=== PATIENT | male | born 1990 | race Caucasian/White ===

== ENCOUNTER 2016-10-21 17:58 | Emergency (ER) | payer OTHER ==
[2016-10-21 17:58] LABS: ACETAMINOPHEN <10 ug/mL; ALBUMIN SERUM 4.1 g/dL (3.5-5.0); ALCOHOL BLOOD <5 mg/dL (0); ALKALINE PHOSPHATASE 72 U/L (32-92); ALT (SGPT) 21 U/L (10-40); AST (SGOT) 35 U/L (10-42); BILIRUBIN, DIRECT 0.3 mg/dL (0.0-0.2); BILIRUBIN,INDIRECT 0.6 mg/dL (0.0-0.9); BILIRUBIN,TOTAL 0.9 mg/dL (0.2-2.0); BLOOD UREA NITROGEN 6 mg/dL (9-23); CARBON DIOXIDE 26 mmol/L (22-31); CHLORIDE 104 mmol/L (100-111); CREATININE SERUM 0.8 mg/dL (0.6-1.4); GLOM FILT RATE Estimated 124.2 mL/min (>60); GLUCOSE FASTING 146 mg/dL (70-110); POTASSIUM 4.8 mmol/L (3.5-5.1); SALICYLATE <4.0 mg/dL; SODIUM 137 mmol/L (135-145)
[~2016-10-21 17:58] MED LIST: BENADRYL ALLERG25 MG PO; ELIMITE60 G1 TP; FAMOTIDINE PO; NALTREXONE IM; NAPROSYN500 MG PO; NO MEDICATIONS; PEN-VEE K PO; PREDNISONE PO; PREDNISONE10 MG/DOSE PO; TORADOL10 MG PO; VOLTAREN75 MG PO
== END 2016-10-21 20:00 | disposition home or self-care (01) ==
LOC: CED 17:58
PROVIDERS: Emergency Medicine
DX: T40.1X1A Poisoning by heroin, accidental (unintentional), initial encounter (principal)
CPT/HCPCS: 36415; 80048; 80076; 96361; 96374; 96375; 99284; G0480; J1885; J2405

== ENCOUNTER 2017-02-04 07:24 | Emergency (ER) | payer OTHER ==
[~2017-02-04] VITALS: Ht 175.3 cm; Wt 68.0 kg
== END 2017-02-04 08:42 | disposition home or self-care (01) ==
LOC: CED 07:24
DX: H10.022 Other mucopurulent conjunctivitis, left eye (principal); F17.210 Nicotine dependence, cigarettes, uncomplicated
CPT/HCPCS: 99283